=== PATIENT | male | born 1980 | race Hispanic/Latino ===

== ENCOUNTER 2018-07-27 17:47 | Emergency (ER) | payer OTHER ==
--- NOTE | 2018-07-27 19:50 | C.PDOC ---
History Of Present Illness 38 y/o male presents to the ED with complaints of 1 week of flu-like symptoms including fever, cough, runny nose, and congestion. Patient admits he has also been drinking for last 5 days, and not taking his medications. Also complains that he feels weak and run down. Otherwise he denies any nausea, vomiting, diarrhea, urinary symptoms, chest pain, or SOB. Denies any suicidal or homicidal ideation. Time Seen by Provider: 07/27/18 19:49 Chief Complaint (Nursing): Substance Abuse History Per: Patient History/Exam Limitations: no limitations Onset/Duration Of Symptoms: Days Current Symptoms Are (Timing): Still Present Suicide/Self Injury Attempted (Context): None Modifying Factor(s): Alcohol Associated Symptoms: denies: Suicidal Thoughts, Suicidal Plan Involuntary Hold By: None Past Medical History Reviewed: Historical Data, Nursing Documentation, Vital Signs Vital Signs: Last Vital Signs Temp 98 F 07/27/18 18:07 Pulse 78 07/27/18 18:07 Resp 18 07/27/18 18:07 BP 145/94 H 07/27/18 18:07 Pulse Ox 98 07/27/18 18:07 - Medical History PMH: Anxiety Surgical History: No Surg Hx Family History: States: No Known Family Hx - Social History Hx Alcohol Use: Yes Hx Substance Use: No (former - cocaine, marijuana) - Immunization History Hx Tetanus Toxoid Vaccination: No Hx Influenza Vaccination: No Hx Pneumococcal Vaccination: No Review Of Systems Constitutional: Positive for: Fever, Weakness (generalized) ENT: Positive for: Nose Discharge, Nose Congestion. Negative for: Throat Pain Cardiovascular: Negative for: Chest Pain Respiratory: Positive for: Cough. Negative for: Shortness of Breath, Hemoptysis, Wheezing Gastrointestinal: Negative for: Nausea, Vomiting, Diarrhea Genitourinary: Negative for: Dysuria, Frequency Skin: Negative for: Rash Neurological: Negative for: Weakness, Dizziness Physical Exam - Physical Exam Appears: Non-toxic, No Acute Distress Skin: Warm, Dry Head: Normacephalic Eye(s): bilateral: Normal Inspection Neck: Trachea Midline, Supple Chest: Symmetrical Cardiovascular: Rhythm Regular Respiratory: No Accessory Muscle Use, No Rales, Rhonchi (scattered), No Wheezing Gastrointestinal/Abdominal: Bowel Sounds (active), Soft, No Tenderness, No Distention Back: No CVA Tenderness Extremity: Normal ROM, No Pedal Edema Extremity: Bilateral: Atraumatic, Normal Color And Temperature Pulses: Left Dorsalis Pedis: Normal, Right Dorsalis Pedis: Normal Neurological/Psych: Oriented x3 ED Course And Treatment - Laboratory Results Result Diagrams: 07/27/18 20:19 07/27/18 20:19 O2 Sat by Pulse Oximetry: 98 (RA) Pulse Ox Interpretation: Normal - Radiology CXR: Interpreted by Me, Viewed By Me CXR Interpretation: No: Infiltrates, Fracture, Pnemothorax Progress Note: Blood work, urine, and flu swab sent. IVF hydration administered. Chest x-ray taken. Reevaluation Time: 22:15 Reassessment Condition: Improved Disposition Counseled Patient/Family Regarding: Studies Performed, Diagnosis, Need For Followup - Disposition Referrals: Cyrsu Wallis MD [Medical Doctor] - Disposition: HOME/ ROUTINE Disposition Time: 19:50 Condition: FAIR Additional Instructions: Please return if symptoms recur Instructions: Alcohol Abuse and Alcoholism (DC), Viral Upper Respiratory Infection, Adult (DC) Forms: [employer] (G[place]ian) - Clinical Impression Clinical Impression: Alcohol intoxication, URI (upper respiratory infection) - Scribe Statement The provider has reviewed the documentation as recorded by the Scribe (Valery Manning) Provider Attestation: All medical record entries made by the Scribe were at my direction and personally dictated by me. I have reviewed the chart and agree that the record accurately reflects my personal performance of the history, physical exam, medical decision making, and the department course for this patient. I have also personally directed, reviewed, and agree with the discharge instructions and disposition.
[2018-07-27] MEDS ORDERED: Sodium Chloride 0.9% 1,000 ML IV ONE (19:57)
[2018-07-27] MEDS ORDERED: Sodium Chloride 0.9% 1,000 ML ONE (20:07)
[2018-07-27 20:24] LABS: ABG ALLEN TEST POS; ARTERIAL BLOOD GAS HCO3 28.2 mmol/L (21-28); ARTERIAL BLOOD GAS PCO2 40 mm/Hg (35-45); ARTERIAL BLOOD GAS PH 7.46 (7.35-7.45); ARTERIAL BLOOD GAS PO2 84 mm/Hg (80-100); ARTERIAL BLOOD GAS TCO2 29.6 mmol/L (22-28)
[2018-07-27 20:32] LABS: BASO % 0.5 % (0.0-2.0); EOS # 0.1 K/uL (0.0-0.7); EOS % 1.2 % (0.0-4.0); HEMOGLOBIN 14.9 g/dL (12.0-18.0); LYMPH # 1.5 K/uL (1.0-4.3); LYMPH % 22.8 % (20.0-40.0); MEAN CELL VOLUME 90.2 fL (80.0-94.0); MEAN CORPUSCULAR HEMOGLOBIN 31.7 pg (27.0-31.0); MEAN CORPUSCULAR HGB CONC 35.2 g/dL (33.0-37.0); MEAN PLATELET VOLUME 7.7 fL (7.2-11.7); MONO # 0.6 K/uL (0.0-0.8); MONO % 8.3 % (0.0-10.0); NEUT # 4.5 K/uL (1.8-7.0); NEUT % 67.2 % (50.0-75.0); RBC 4.7 Mil/uL (4.40-5.90); WHITE BLOOD COUNT 6.7 K/uL (4.8-10.8)
[2018-07-27 20:40] LABS: ALB/GLOB RATIO 1.5 (1.0-2.1); ALT/SGPT 129 U/L (21-72); AST/SGOT 111 U/L (17-59); BLOOD UREA NITROGEN 9 mg/dL (9-20); CALCIUM 8.9 mg/dl (8.6-10.4); GFR NON-AFRICAN AMERICAN > 60
[2018-07-27 20:46] LABS: URINE CLARITY Clear (Clear); URINE COLOR YELLOW (YELLOW)
[2018-07-27 20:47] LABS: URINE BILIRUBIN NEGATIVE (NEGATIVE); URINE BLOOD NEGATIVE (NEGATIVE); URINE GLUCOSE (UA) NEGATIVE (Normal); URINE LEUKOCYTE ESTERASE NEGATIVE Leu/uL (Negative); URINE PROTEIN NEGATIVE (NEGATIVE); URINE UROBILINOGEN NORMAL mg/dL (0.2-1.0)
[2018-07-27 20:50] LABS: BARBITURATES, UR NEGATIVE (NEGATIVE); OPIATES, UR NEGATIVE (NEGATIVE); PHENCYCLIDINE, UR NEGATIVE (NEGATIVE)
[2018-07-27 20:57] LABS: BENZODIAZEPINES, UR POSITIVE (NEGATIVE)
[2018-07-27 21:16] VITALS: TEMP 98.5
[2018-07-27 22:24] VITALS: BP 140/78; PULSE 75; RESP 17; O2SAT 100
--- NOTE | 2018-07-28 08:39 | RAD ---
Date of service: 07/27/2018 HISTORY: Shortness of breath COMPARISON: 07/27/2018 FINDINGS: LUNGS: No active pulmonary disease. Small nodular density at the right lung base likely represents vessel on end. PLEURA: No significant pleural effusion identified, no pneumothorax apparent. CARDIOVASCULAR: No atherosclerotic calcification present Normal. OSSEOUS STRUCTURES: No significant abnormalities. VISUALIZED UPPER ABDOMEN: Normal. OTHER FINDINGS: None. IMPRESSION: No active disease.
== END 2018-07-27 22:23 | disposition home or self-care (01) ==
LOC: C.ER 17:47
DX: J06.9 Acute upper respiratory infection, unspecified (principal); F10.129 Alcohol abuse with intoxication, unspecified; Y90.2 Blood alcohol level of 40-59 mg/100 ml
CPT/HCPCS: 36600; 71045; 80053; 80320; 80324; 80345; 80346; 80349; 80353; 80358; 80361; 81001; 82803; 83992; 85025; 87804; 96360; 99285; J7030